=== PATIENT | female | born 1960 | race Caucasian/White ===

== ENCOUNTER 2022-04-30 19:23 | Emergency (ER) | payer OTHER ==
[~2022-04-30] VITALS: Ht 162.6 cm; Wt 88.5 kg
[2022-04-30] MEDS ORDERED: CLIN-141 PO (20:13)
[2022-04-30] MEDS ORDERED: ACET-66 PO (20:13)
[2022-04-30] MEDS ORDERED: CLINDAMYCIN 150 MG CAP PO ONE (20:30)
[2022-04-30 20:41] VITALS: BP 113/71
== END 2022-04-30 20:40 | disposition home or self-care (01) ==
LOC: EDH 19:23
DX: L02.211 Cutaneous abscess of abdominal wall (principal); I10 Essential (primary) hypertension; Z98.890 Other specified postprocedural states
CPT/HCPCS: 10060

== ENCOUNTER → 2025-03-15 | Outpatient (CLI) | payer OTHER ==
[~2025-03-15] MED LIST: ACET-66 PO; CLIN-141 PO
--- NOTE | 2025-03-16 14:37 | HMCIMG ---
EXAM: CT Cardiac calcium scoring. CLINICAL HISTORY: CAD screening. TECHNIQUE: Thin collimated axial CT cardiac images were obtained. A CT scan is done according to ALARA (As Low As Reasonably Achievable). CONTRAST: None. COMPARISON: CT dated 10/13/2012. FINDINGS: Mild pericardial effusion anteriorly measuring approximately 1.7 cm in maximum thickness. Calcium Score: VESSEL Number of lesions Volume mm3 Equi. Mass/mg Calcium score LM 0 00.00 00.00 00.00 LAD 1 2.7 --.-- 4.4 LCX 0 00.00 00.00 00.00 RCA 0 00.00 00.00 00.00 Total 1 2.7 --.-- 4.4 IMPRESSION: The calcium score is 4.4. This places the patient above the 25th percentile in comparison to a group of patients asymptomatic for coronary artery disease with the same age and gender. This means that >25% of females aged 65-69 have a calcium score that is lower than the patient's. Mild interval worsening noted. Mild pericardial effusion anteriorly measuring approximately 1.7 cm in maximum thickness. Mild interval worsening noted. /[place]
== END | disposition home or self-care (01) ==
LOC: RAH 15:22
PROVIDERS: ATTEND Internal Medicine Cardiovascular Disease
DX: Z13.6 Encounter for screening for cardiovascular disorders (principal); I31.39 Other pericardial effusion (noninflammatory); I25.10 Atherosclerotic heart disease of native coronary artery without angina pectoris
CPT/HCPCS: 75571